=== PATIENT | male | born 1995 | race Two or more races ===

== ENCOUNTER 2022-03-06 14:22 | Emergency (ER) | payer MEDICAID ==
[~2022-03-06] VITALS: Ht 185.4 cm; Wt 81.0 kg
[2022-03-06] MEDS ORDERED: IBUP800T27 PO (18:59)
[2022-03-06] MEDS ORDERED: KETOROLAC TROMETH 60MG/2ML VIAL IM ONE (19:00)
[2022-03-06 19:11] VITALS: BP 141/89
== END 2022-03-06 19:18 | disposition home or self-care (01) ==
LOC: ER 14:22 → EDBD 14:22 → ER 19:18
DX: G43.909 Migraine, unspecified, not intractable, without status migrainosus (principal); F17.210 Nicotine dependence, cigarettes, uncomplicated
CPT/HCPCS: 96372; 99283; J1885